=== PATIENT | female | born 1995 | race Caucasian/White ===

== ENCOUNTER 2022-06-16 12:14 | Emergency (ER) | payer BC ==
[2022-06-16 13:00] LABS: BASO # 0.02 K/mm3 (0.02-0.10); EOS # 0.17 K/mm3 (0.04-0.40); EOS % 3.1 % (1.0-5.0); HEMATOCRIT 34.6 % (37.0-47.0); HEMOGLOBIN 11.1 g/dL (12.5-16.0); LYMPH# 1.44 K/mm3 (1.50-4.00); MEAN CELL VOLUME 77 fl (78-100); MEAN CORPUSCULAR HEMOGLOBIN 25 pg (27-31); MEAN CORPUSCULAR HGB CONC 32 g/dL (33-37); MEAN PLATELET VOLUME 10.3 fl (7.4-10.4); MONO # 0.46 K/mm3 (0.20-0.80); NEU # 3.37 K/mm3 (1.40-6.50); PLATELET COUNT 265 K/mm3 (130-400); RED BLOOD COUNT 4.49 M/mm3 (4.10-5.30); RED CELL DISTRIBUTION WIDTH 14.4 % (11.5-14.5); WHITE BLOOD COUNT 5.5 K/mm3 (4.8-10.8)
[2022-06-16 13:01] LABS: ALBUMIN 4.3 g/dL (3.5-5.0)
[2022-06-16 13:02] LABS: POTASSIUM 3.7 mmol/L (3.5-5.1)
[2022-06-16 13:03] LABS: CALCIUM 9.1 mg/dL (8.3-10.5)
[2022-06-16 13:04] LABS: TOTAL PROTEIN 7.5 g/dL (6.4-8.3)
[2022-06-16 13:06] LABS: TOTAL BILIRUBIN 0.4 mg/dL (0.2-1.2)
[2022-06-16 14:16] VITALS: BP 147/83
== END 2022-06-16 14:10 | disposition home or self-care (01) ==
LOC: ED 12:14
PROVIDERS: Nurse Practitioner
DX: U07.1 COVID-19 (principal); N93.9 Abnormal uterine and vaginal bleeding, unspecified; Z28.310 Unvaccinated for COVID-19